=== PATIENT | male | born 1965 | race African-American/Black ===

== ENCOUNTER 2020-03-20 16:18 | Emergency (ER) | payer OTHER ==
[~2020-03-20] VITALS: Ht 177.8 cm; Wt 75.0 kg
[2020-03-20] MEDS ORDERED: HYDROCODONE/ACETAMINOPHEN 5/325MG TABLET PO ONE ×2 (17:15→22:15)
[2020-03-20] MEDS ORDERED: LIDOCAINE 1%/EPI 1:100,000 10 ML VIAL IJ ONE (17:15)
[2020-03-20] MEDS ORDERED: TETANUS, DIPHTHERIA, PERTUSSIS VAC/PF 0.5ML (>7YR OLD) IM ONE (17:15)
[2020-03-20] MEDS ORDERED: BACITRACIN ZINC OINT UDPKT TOP ONE (17:15)
[2020-03-20] MEDS: LIDOCAINE HCL/EPINEPHRINE 1%-EPI 1:100,000 20 ML VIAL INFIL NR ×3 (17:53→18:39)
[2020-03-20] MEDS ORDERED: MORPHINE SULFATE 4 MG/ML CPJ (NOT FOR IM USE) IV STA (17:56)
[2020-03-20] MEDS ORDERED: ONDANSETRON HCL 4MG/2ML INJ IV STA (17:56)
[2020-03-20] MEDS: AMPICILLIN SOD/SULBACTAM NA 3 G in SODIUM CHLORIDE 0.9% 100 ML IV SCH (18:00)
[2020-03-20] MEDS ORDERED: SODIUM CHLORIDE 0.9% 1,000 ML IV ONE (18:00)
[2020-03-20 22:42] VITALS: BP 139/92
== END 2020-03-20 23:03 | disposition short-term general hospital (02) ==
LOC: ER 16:18
DX: S52.201A Unspecified fracture of shaft of right ulna, initial encounter for closed fracture (principal); W54.0XXA Bitten by dog, initial encounter; Y93.89 Activity, other specified; Y92.89 Other specified places as the place of occurrence of the external cause; Y99.8 Other external cause status
CPT/HCPCS: 73090; 73110; 73130; 90471; 90715; 96365; 99285; J0295; J3490; J7030; J7050